=== PATIENT | male | born 1950 | race Caucasian/White ===

== ENCOUNTER 2019-09-06 16:33 | Inpatient (IN) | payer OTHER, MEDICARE ==
[2019-09-06] MEDS ORDERED: Sodium Chloride 0.9% 2.5 ML Syringe FLUSH PRN (16:45)
[2019-09-06] MEDS ORDERED: Aspirin 81 MG Tab.Chew PO ONE (16:45)
[2019-09-06] MEDS ORDERED: Sodium Chloride 0.9% 10 ML Syringe FLUSH PRN (16:45)
--- NOTE | 2019-09-06 16:49 | EDM.PDOC ---
ED HPI GENERAL MEDICAL PROBLEM - General Chief Complaint: Respiratory Problem Stated Complaint: COUGH Time Seen by Provider: 09/06/19 16:34 Source of Information: Reports: Patient History Limitations: Reports: No Limitations - History of Present Illness INITIAL COMMENTS - FREE TEXT/NARRATIVE: HISTORY AND PHYSICAL: History of present illness: Patient is a 69-year-old male who presents to the emergency room with complaints of shortness of breath and cough. He reports that the shortness of breath has been longstanding and ongoing for the past 2 years. Over the past 2 weeks the shortness of breath has slightly increased but he was concerned as he has developed a cough. He reports having right-sided anterior to mid axillary chest wall pain that is worse with coughing. Chest wall is nontender. There is no evidence of a shingles type rash. He did go to [facility] and had COVID-19 swab completed 2 days ago, received his results today which were negative. Patient denies any fever, chills, headache, change in vision, syncope or near syncope. Denies any back pain, sensation of palpitations, tachycardia, or lower extremity swelling. Denies any abdominal pain, nausea, vomiting, diarrhea, constipation or dysuria. Has not noted any blood in urine or stool. Patient has been eating and drinking appropriately. Denies any recent travel or exposure to anyone who is been ill. Patient [place], history of hypertension, elevated cholesterol and OR with stent x4. Review of systems: As per history of present illness and below otherwise all systems reviewed and negative. Past medical history: As per history of present illness and as reviewed below otherwise noncontributory. Surgical history: As per history of present illness and as reviewed below otherwise noncontributory. Social history: See social history for further information Family history: As per history of present illness and as reviewed below otherwise noncontributory. Physical exam: General: Well-developed and well-nourished 69-year-old male. Alert and oriented. Nontoxic-appearing and in no acute distress. HEENT: Atraumatic, normocephalic, pupils equal and reactive bilaterally, negative for conjunctival pallor or scleral icterus, mucous membranes moist, TMs normal bilaterally, throat clear, neck supple, nontender, trachea midline. No drooling or trismus noted. No meningeal signs. No hot potato voice noted. Lungs: Clear to auscultation, breath sounds equal bilaterally, chest nontender. Heart: Irregular rate and rhythm without overt murmur Abdomen: Soft, nondistended, nontender. Negative for masses or hepatosplenomegaly. Negative for costovertebral tenderness. Skin: Intact, warm, dry. No lesions or rashes noted. Extremities: Atraumatic, moves all extremities per self without difficulty or deficits, negative lower extremity edema, negative for cords or calf pain. Neurovascular unremarkable. Neuro: Awake, alert, oriented. Cranial nerves II through XII unremarkable. Cerebellum unremarkable. Motor and sensory unremarkable throughout. Exam nonfocal. Notes: EKG shows atrial fibrillation with a rate of 108. There is no previous EKGs to compare to. Patient denies having any known history of atrial fibrillation. Patient has an elevated WBC, BUN/Creat, and D. Dimer. CTA chest ordered to r/o PE; risks vs benefits weighted. Will rehydrate afterwards. CT of the chest shows a moderate amount of pulmonary embolism in the right upper and lower lung. There is a small clot in the left lower lung. Probable early infarct within the right upper lung. There is a small right-sided pleural effusion with mild bibasilar atelectasis. Small pericardial effusion with cardiomegaly. No evidence of right heart strain is seen at this time. I did consult Dr. Alvarez, hospitalist on-call, he is agreeable to keeping this patient for inpatient management. Heparin bolus and IV drip started here. I did discuss diagnostics with the patient and I called his , [place] N[place] [phone]) and we discussed the need for admission. Both are agreeable to plan of care. Vital signs remained stable. Diagnostics: CBC, CMP, troponin, EKG, chest x-ray, d-dimer, INR, CTA chest Therapeutics: Aspirin, normal saline, heparin bolus and drip Impression: New onset of atrial fibrillation Renal insufficiency PE Plan: Inpatient admission with telemetry Definitive disposition and diagnosis as appropriate pending reevaluation and review of above. - Related Data Allergies Allergy/AdvReac Type Severity Reaction Status Date / Time No Known Allergies Allergy Verified 09/06/19 16:46 Home Meds: Home Meds Allopurinol [Zyloprim] 150 mg PO DAILY 09/06/19 [History] Aspirin 81 mg PO DAILY 09/06/19 [History] Metoprolol Succinate 1 tab PO DAILY 09/06/19 [History] Nitroglycerin 1 tab SL ASDIRECTED 09/06/19 [History] Potassium Chloride 1 tab PO BID 09/06/19 [History] Simvastatin 1 tab PO BEDTIME 09/06/19 [History] Triamterene/Hydrochlorothiazid [Triamterene-HCTZ 37.5-25 MG] 1 tab PO DAILY 09/06/19 [History] amLODIPine [Norvasc] 5 mg PO DAILY 09/06/19 [History] lisinopriL [Lisinopril] 40 mg PO DAILY 09/06/19 [History] traZODone HCl [Trazodone HCl] 1 tab PO BEDTIME 09/06/19 [History] ED ROS GENERAL - Review of Systems Review Of Systems: Comprehensive ROS is negative, except as noted in HPI. ED EXAM, GENERAL - Physical Exam Exam: See Below (See dictation) Course - Vital Signs Last Recorded V/S: Last Vital Signs Temp 96.3 F L 09/06/19 16:44 Pulse 104 H 09/06/19 18:31 Resp 17 09/06/19 18:31 BP 118/79 09/06/19 18:31 Pulse Ox 94 L 09/06/19 18:31 - Orders/Labs/Meds Orders: Active Orders 24 hr Category Date Time Status Admission Status [Patient Status] [ADT] Stat ADT 09/06/19 19:12 Ordered EKG Documentation Completion [RC] STAT Care 09/06/19 16:45 Active CORONAVIRUS COVID-19 DANIEL [MOLEC] Stat Lab 09/06/19 18:30 Received INR,PT,PROTHROMBIN TIME [COAG] Stat Lab 09/06/19 19:00 Ordered Heparin Sod,Pork In 0.45% Nacl [Heparin-1/2Ns 25,000 Med 09/06/19 19:15 Ordered Units/500] 25,000 unit in 500 ml IV TITRATE Heparin Sodium Med 09/06/19 19:14 Once 5,000 units IVPUSH .BOLUS ONE Sodium Chloride 0.9% [Normal Saline] 1,000 ml Med 09/06/19 17:48 Active IV STAT Sodium Chloride 0.9% [Saline Flush] Med 09/06/19 16:45 Active 10 ml FLUSH ASDIRECTED PRN Sodium Chloride 0.9% [Saline Flush] Med 09/06/19 16:45 Active 2.5 ml FLUSH ASDIRECTED PRN Saline Lock Insert [OM.PC] Stat Oth 09/06/19 16:45 Ordered Medication Orders Sodium Chloride (Normal Saline) 1,000 mls @ 200 mls/hr IV STAT ONE Stop: 09/06/19 22:47 Last Admin: 09/06/19 17:50 Dose: 200 mls/hr Documented by: DOREEN Sodium Chloride (Saline Flush) 10 ml FLUSH ASDIRECTED PRN PRN Reason: Keep Vein Open Last Admin: 09/06/19 17:14 Dose: 10 ml Documented by: DOREEN Sodium Chloride (Saline Flush) 2.5 ml FLUSH ASDIRECTED PRN PRN Reason: Keep Vein Open Last Admin: 09/06/19 17:14 Dose: 2.5 ml Documented by: DOREEN Labs: Laboratory Tests 09/06/19 09/06/19 09/06/19 Range/Units 16:55 16:55 16:55 WBC 14.65 H (4.0-11.0) K/uL RBC 5.65 (4.50-5.90) M/uL Hgb 16.7 (13.0-17.0) g/dL Hct 46.4 (38.0-50.0) % MCV 82.1 (80.0-98.0) fL MCH 29.6 (27.0-32.0) pg MCHC 36.0 (31.0-37.0) g/dL RDW Std Deviation 39.0 (28.0-62.0) fl RDW Coeff of Jennifer 13 (11.0-15.0) % Plt Count 266 (150-400) K/uL MPV 10.50 (7.40-12.00) fL Neut % (Auto) 74.2 (48.0-80.0) % Lymph % (Auto) 13.7 L (16.0-40.0) % [place] % (Auto) 11.8 (0.0-15.0) % Eos % (Auto) 0.1 (0.0-7.0) % Baso % (Auto) 0.2 (0.0-1.5) % Neut # (Auto) 10.9 H (1.4-5.7) K/uL Lymph # (Auto) 2.0 (0.6-2.4) K/uL [place] # (Auto) 1.7 H (0.0-0.8) K/uL Eos # (Auto) 0.0 (0.0-0.7) K/uL Baso # (Auto) 0.0 (0.0-0.1) K/uL Nucleated RBC % 0.0 /100WBC Nucleated RBCs # 0 K/uL D-Dimer, Quantitative 2.49 H (0.0-0.50) mg/L FEU Sodium 136 (136-148) mmol/L Potassium 3.2 L (3.5-5.1) mmol/L Chloride 97 L (98-107) mmol/L Carbon Dioxide 26.5 (21.0-32.0) mmol/L BUN 29 H (7.0-18.0) mg/dL Creatinine 2.0 H (0.8-1.3) mg/dL Est Cr Clr Drug Dosing 36.60 mL/min Estimated GFR (MDRD) 33.2 ml/min Glucose 124 H (74-106) mg/dL Calcium 9.3 (8.5-10.1) mg/dL Total Bilirubin 1.8 H (0.2-1.0) mg/dL AST 26 (15-37) IU/L ALT 33 (14-63) IU/L Alkaline Phosphatase 148 H (46-116) U/L Troponin I < 0.050 (0.000-0.056) ng/mL Total Protein 7.6 (6.4-8.2) g/dL Albumin 3.7 (3.4-5.0) g/dL Globulin 3.9 (2.6-4.0) g/dL Albumin/Globulin Ratio 0.9 (0.9-1.6) TSH 3rd Generation (0.36-3.74) uIU/mL 09/06/19 Range/Units 16:55 WBC (4.0-11.0) K/uL RBC (4.50-5.90) M/uL Hgb (13.0-17.0) g/dL Hct (38.0-50.0) % MCV (80.0-98.0) fL MCH (27.0-32.0) pg MCHC (31.0-37.0) g/dL RDW Std Deviation (28.0-62.0) fl RDW Coeff of Jennifer (11.0-15.0) % Plt Count (150-400) K/uL MPV (7.40-12.00) fL Neut % (Auto) (48.0-80.0) % Lymph % (Auto) (16.0-40.0) % [place] % (Auto) (0.0-15.0) % Eos % (Auto) (0.0-7.0) % Baso % (Auto) (0.0-1.5) % Neut # (Auto) (1.4-5.7) K/uL Lymph # (Auto) (0.6-2.4) K/uL [place] # (Auto) (0.0-0.8) K/uL Eos # (Auto) (0.0-0.7) K/uL Baso # (Auto) (0.0-0.1) K/uL Nucleated RBC % /100WBC Nucleated RBCs # K/uL D-Dimer, Quantitative (0.0-0.50) mg/L FEU Sodium (136-148) mmol/L Potassium (3.5-5.1) mmol/L Chloride (98-107) mmol/L Carbon Dioxide (21.0-32.0) mmol/L BUN (7.0-18.0) mg/dL Creatinine (0.8-1.3) mg/dL Est Cr Clr Drug Dosing mL/min Estimated GFR (MDRD) ml/min Glucose (74-106) mg/dL Calcium (8.5-10.1) mg/dL Total Bilirubin (0.2-1.0) mg/dL AST (15-37) IU/L ALT (14-63) IU/L Alkaline Phosphatase (46-116) U/L Troponin I (0.000-0.056) ng/mL Total Protein (6.4-8.2) g/dL Albumin (3.4-5.0) g/dL Globulin (2.6-4.0) g/dL Albumin/Globulin Ratio (0.9-1.6) TSH 3rd Generation 1.64 (0.36-3.74) uIU/mL Meds: Medications Generic Name Dose Route Start Last Admin Trade Name Freq PRN Reason Stop Dose Admin Sodium Chloride 1,000 mls @ 200 mls/hr 09/06/19 17:48 09/06/19 17:50 Normal Saline IV 09/06/19 22:47 200 mls/hr STAT ONE Administration Sodium Chloride 10 ml 09/06/19 16:45 09/06/19 17:14 Saline Flush FLUSH 10 ml ASDIRECTED PRN Administration Keep Vein Open Sodium Chloride 2.5 ml 09/06/19 16:45 09/06/19 17:14 Saline Flush FLUSH 2.5 ml ASDIRECTED PRN Administration Keep Vein Open Discontinued Medications Generic Name Dose Route Start Last Admin Trade Name Freq PRN Reason Stop Dose Admin Aspirin 324 mg 09/06/19 16:45 09/06/19 17:14 Aspirin PO 09/06/19 16:46 324 mg ONETIME ONE Administration Iopamidol 50 ml 09/06/19 18:15 09/06/19 18:16 Isovue Multipack-370 (76%) IVPUSH 09/06/19 18:16 50 ml ONETIME STA Administration Departure - Departure Time of Disposition: 19:20 Disposition: Admitted As Inpatient 65 Clinical Impression: Atrial fibrillation, new onset, Renal insufficiency Pulmonary emboli Qualifiers: Pulmonary embolism type: unspecified Chronicity: acute Acute cor pulmonale presence: unspecified Qualified Code(s): I26.99 - Other pulmonary embolism without acute cor pulmonale - Discharge Information Referrals: [facility] [Primary Care Provider] - Forms: ED Department Discharge Sepsis Event Note (ED) - Evaluation Sepsis Screening Result: No Definite Risk - Focused Exam Vital Signs: Vital Signs Temp Pulse Resp BP Pulse Ox 09/06/19 18:31 104 H 17 118/79 94 L 09/06/19 18:18 107 H 18 117/84 94 L 09/06/19 17:31 121 H 120/83 95 09/06/19 16:44 96.3 F L 78 18 129/85 92 L - My Orders Last 24 Hours: My Active Orders 09/06/19 16:45 EKG Documentation Completion [RC] STAT Sodium Chloride 0.9% [Saline Flush] 10 ml FLUSH ASDIRECTED PRN Sodium Chloride 0.9% [Saline Flush] 2.5 ml FLUSH ASDIRECTED PRN Saline Lock Insert [OM.PC] Stat 09/06/19 17:48 Sodium Chloride 0.9% [Normal Saline] 1,000 ml IV STAT 09/06/19 18:30 CORONAVIRUS COVID-19 DANIEL [MOLEC] Stat 09/06/19 19:00 INR,PT,PROTHROMBIN TIME [COAG] Stat 09/06/19 19:12 Admission Status [Patient Status] [ADT] Stat 09/06/19 19:14 Heparin Sodium 5,000 units IVPUSH .BOLUS ONE 09/06/19 19:15 Heparin Sod,Pork In 0.45% Nacl [Heparin-1/2Ns 25,000 Units/500] 25,000 unit in 500 ml IV TITRATE - Assessment/Plan Last 24 Hours: My Active Orders 09/06/19 16:45 EKG Documentation Completion [RC] STAT Sodium Chloride 0.9% [Saline Flush] 10 ml FLUSH ASDIRECTED PRN Sodium Chloride 0.9% [Saline Flush] 2.5 ml FLUSH ASDIRECTED PRN Saline Lock Insert [OM.PC] Stat 09/06/19 17:48 Sodium Chloride 0.9% [Normal Saline] 1,000 ml IV STAT 09/06/19 18:30 CORONAVIRUS COVID-19 DANIEL [MOLEC] Stat 09/06/19 19:00 INR,PT,PROTHROMBIN TIME [COAG] Stat 09/06/19 19:12 Admission Status [Patient Status] [ADT] Stat 09/06/19 19:14 Heparin Sodium 5,000 units IVPUSH .BOLUS ONE 09/06/19 19:15 Heparin Sod,Pork In 0.45% Nacl [Heparin-1/2Ns 25,000 Units/500] 25,000 unit in 500 ml IV TITRATE
--- NOTE | 2019-09-06 17:35 | CR ---
Chest: Portable view of the chest was obtained. Comparison: Prior chest x-ray of 05/06/09. Heart has a slight left ventricular configuration. Upper mediastinum is normal. Focal parenchymal density is noted within the right upper lung along the chest wall. This could represent pneumonia or mass. Lungs otherwise are clear. Bony structures are unremarkable. Impression: 1. Parenchymal density within right upper lung adjacent to the right chest wall either due to mass or pneumonia. Recommend treatment as pneumonia with follow-up chest x-ray when therapy is complete to make sure this finding resolves. 2. Left ventricular configuration of the heart. Diagnostic code #3 Study was dictated in MDT
[2019-09-06 17:40] LABS: BLOOD UREA NITROGEN,BUN 29 mg/dL (7.0-18.0); CARBON DIOXIDE,CO2 26.5 mmol/L (21.0-32.0); CHLORIDE,CL 97 mmol/L (98-107); GLUCOSE RANDOM 124 mg/dL (74-106); POTASSIUM,K 3.2 mmol/L (3.5-5.1); SODIUM,NA 136 mmol/L (136-148)
[2019-09-06] MEDS ORDERED: Sodium Chloride 0.9% 1,000 ML IV ONE (17:48)
[2019-09-06] MEDS ORDERED: Iopamidol 755 MG/ML 500 ML Multipack Bottle IVPUSH STA (18:15)
--- NOTE | 2019-09-06 18:58 | CT ---
CT chest Technique: Multiple axial sections through the chest were obtained. Intravenous contrast was utilized. Study performed as a pulmonary protocol. Findings: Clot is seen within the segmental and subsegmental branch of the right upper lung. Clot is seen within the segmental and subsegmental branches of the right lower lung. Small amount of clot is noted within the subsegmental branches of the left lower lung. Small right sided pleural effusion is seen. Focal parenchymal density within the right upper lung base is noted most likely due to early pulmonary infarct. Lungs otherwise are clear other than slight bibasilar atelectasis. Visualized upper abdominal structures shows prior cholecystectomy. Small pericardial effusion is noted. Heart is enlarged. No evidence of right heart strain. Aorta shows no aneurysm. No adenopathy is seen within the chest. Bone window settings were reviewed which shows slight degenerative change within the spine without acute osseous finding. Impression: 1. Moderate amount of pulmonary emboli as described above. 2. Probable early infarct within the right upper lung. 3. Small right sided pleural effusion with mild bibasilar atelectasis. 4. Small pericardial effusion with cardiomegaly. No evidence of right heart strain seen at this time. 5. Other findings believed to be nonacute as described above. Diagnostic code #5 Study was dictated in MDT
[2019-09-06] MEDS ORDERED: Heparin Sodium 5,000 Units/ML Vial IVPUSH ONE (19:14)
[2019-09-06] MEDS: Heparin Sod,Pork In 0.45% Nacl 25,000 UNIT/500 ML IV.SOLN IV SCH (19:37)
[2019-09-06] MEDS ORDERED: oxyCODONE 5 MG Tab PO PRN (21:22)
[2019-09-06] MEDS ORDERED: Morphine 2 MG/ML SYRINGE IV PRN (21:30)
--- NOTE | 2019-09-06 22:25 | PCM.HP.2 ---
H&P History of Present Illness - General Date of Service: 09/06/19 Admit Problem/Dx: Admission Diagnosis/Problem Admission Diagnosis/Problem Pulmonary embolism - History of Present Illness Initial Comments - Free Text/Narative: 69 yo male with pmh of CAD, s/p PCI, who presents with two week history of shortness of breath. PAtient reports shortness of breath with walking a few feet. He did report a cough but denies any fevers. The last several days he reported right sided chest pain. In the ED EKG showed atrial fibrillation, HR in the 80s-110s. Troponin negative, D-dimer elevated. CT scan of chest showed PE in multiple lung lobes. - Related Data Allergies/Adverse Reactions: Allergies Allergy/AdvReac Type Severity Reaction Status Date / Time No Known Allergies Allergy Verified 09/06/19 20:25 Home Medications: Home Meds Allopurinol [Zyloprim] 150 mg PO DAILY 09/06/19 [History] Aspirin 81 mg PO DAILY 09/06/19 [History] Metoprolol Succinate 1 tab PO DAILY 09/06/19 [History] Nitroglycerin 1 tab SL ASDIRECTED 09/06/19 [History] Potassium Chloride 10 meq PO BID 09/06/19 [History] Simvastatin 1 tab PO BEDTIME 09/06/19 [History] Triamterene/Hydrochlorothiazid [Triamterene-HCTZ 37.5-25 MG] 1 tab PO DAILY 09/06/19 [History] lisinopriL [Lisinopril] 40 mg PO DAILY 09/06/19 [History] traZODone HCl [Trazodone HCl] 1 tab PO BEDTIME 09/06/19 [History] Past Medical History Cardiovascular History: Reports: CAD, High Cholesterol, Hypertension, HI - Past Surgical History Cardiovascular Surgical History: Reports: Carotid Stents GI Surgical History: Reports: Cholecystectomy Social & Family History - Family History Family Medical History: Noncontributory - Tobacco Use Smoking Status *Q: Never Smoker Second Hand Smoke Exposure: No - Caffeine Use Caffeine Use: Reports: Coffee, Soda - Recreational Drug Use Recreational Drug Use: No H&P Review of Systems - Review of Systems: Review Of Systems: Comprehensive ROS is negative, except as noted in HPI. Exam - Exam Exam: See Below - Vital Signs Vital Signs: Last Vital Signs Temp 35.7 C L 09/06/19 16:44 Pulse 108 H 09/06/19 20:08 Resp 18 09/06/19 20:08 BP 121/87 09/06/19 20:08 Pulse Ox 92 L 09/06/19 20:08 Weight: 80.739 kg - Exam General: Alert, Oriented HEENT: Mucosa Moist & [place] Lungs: Clear to Auscultation, Normal Respiratory Effort Cardiovascular: Regular Rate, Regular Rhythm GI/Abdominal Exam: Normal Bowel Sounds, Soft, Non-Tender Extremities: Non-Tender, No Pedal Edema Skin: Warm, Dry, Intact Neurological: Cranial Nerves Intact. No: Focal Deficit - Patient Data Lab Results Last 24 hrs: Laboratory Results - last 24 hr 09/06/19 09/06/19 09/06/19 Range/Units 16:55 16:55 16:55 WBC 14.65 H (4.0-11.0) K/uL RBC 5.65 (4.50-5.90) M/uL Hgb 16.7 (13.0-17.0) g/dL Hct 46.4 (38.0-50.0) % MCV 82.1 (80.0-98.0) fL MCH 29.6 (27.0-32.0) pg MCHC 36.0 (31.0-37.0) g/dL RDW Std Deviation 39.0 (28.0-62.0) fl RDW Coeff of Jennifer 13 (11.0-15.0) % Plt Count 266 (150-400) K/uL MPV 10.50 (7.40-12.00) fL Neut % (Auto) 74.2 (48.0-80.0) % Lymph % (Auto) 13.7 L (16.0-40.0) % [place] % (Auto) 11.8 (0.0-15.0) % Eos % (Auto) 0.1 (0.0-7.0) % Baso % (Auto) 0.2 (0.0-1.5) % Neut # (Auto) 10.9 H (1.4-5.7) K/uL Lymph # (Auto) 2.0 (0.6-2.4) K/uL [place] # (Auto) 1.7 H (0.0-0.8) K/uL Eos # (Auto) 0.0 (0.0-0.7) K/uL Baso # (Auto) 0.0 (0.0-0.1) K/uL Nucleated RBC % 0.0 /100WBC Nucleated RBCs # 0 K/uL INR D-Dimer, Quantitative 2.49 H (0.0-0.50) mg/L FEU Sodium 136 (136-148) mmol/L Potassium 3.2 L (3.5-5.1) mmol/L Chloride 97 L (98-107) mmol/L Carbon Dioxide 26.5 (21.0-32.0) mmol/L BUN 29 H (7.0-18.0) mg/dL Creatinine 2.0 H (0.8-1.3) mg/dL Est Cr Clr Drug Dosing 36.60 mL/min Estimated GFR (MDRD) 33.2 ml/min Glucose 124 H (74-106) mg/dL Calcium 9.3 (8.5-10.1) mg/dL Total Bilirubin 1.8 H (0.2-1.0) mg/dL AST 26 (15-37) IU/L ALT 33 (14-63) IU/L Alkaline Phosphatase 148 H (46-116) U/L Troponin I < 0.050 (0.000-0.056) ng/mL Total Protein 7.6 (6.4-8.2) g/dL Albumin 3.7 (3.4-5.0) g/dL Globulin 3.9 (2.6-4.0) g/dL Albumin/Globulin Ratio 0.9 (0.9-1.6) TSH 3rd Generation (0.36-3.74) uIU/mL SARS Virus RNA (PCR) (NEGATIVE) 09/06/19 09/06/19 09/06/19 Range/Units 16:55 16:55 18:30 WBC (4.0-11.0) K/uL RBC (4.50-5.90) M/uL Hgb (13.0-17.0) g/dL Hct (38.0-50.0) % MCV (80.0-98.0) fL MCH (27.0-32.0) pg MCHC (31.0-37.0) g/dL RDW Std Deviation (28.0-62.0) fl RDW Coeff of Jennifer (11.0-15.0) % Plt Count (150-400) K/uL MPV (7.40-12.00) fL Neut % (Auto) (48.0-80.0) % Lymph % (Auto) (16.0-40.0) % [place] % (Auto) (0.0-15.0) % Eos % (Auto) (0.0-7.0) % Baso % (Auto) (0.0-1.5) % Neut # (Auto) (1.4-5.7) K/uL Lymph # (Auto) (0.6-2.4) K/uL [place] # (Auto) (0.0-0.8) K/uL Eos # (Auto) (0.0-0.7) K/uL Baso # (Auto) (0.0-0.1) K/uL Nucleated RBC % /100WBC Nucleated RBCs # K/uL INR 1.02 D-Dimer, Quantitative (0.0-0.50) mg/L FEU Sodium (136-148) mmol/L Potassium (3.5-5.1) mmol/L Chloride (98-107) mmol/L Carbon Dioxide (21.0-32.0) mmol/L BUN (7.0-18.0) mg/dL Creatinine (0.8-1.3) mg/dL Est Cr Clr Drug Dosing mL/min Estimated GFR (MDRD) ml/min Glucose (74-106) mg/dL Calcium (8.5-10.1) mg/dL Total Bilirubin (0.2-1.0) mg/dL AST (15-37) IU/L ALT (14-63) IU/L Alkaline Phosphatase (46-116) U/L Troponin I (0.000-0.056) ng/mL Total Protein (6.4-8.2) g/dL Albumin (3.4-5.0) g/dL Globulin (2.6-4.0) g/dL Albumin/Globulin Ratio (0.9-1.6) TSH 3rd Generation 1.64 (0.36-3.74) uIU/mL SARS Virus RNA (PCR) NEGATIVE (NEGATIVE) Result Diagrams: 09/07/19 05:50 09/07/19 05:50 Sepsis Event Note - Evaluation Sepsis Screening Result: No Definite Risk - Focused Exam Vital Signs: Vital Signs Temp Pulse Resp BP Pulse Ox 09/06/19 20:08 108 H 18 121/87 92 L 09/06/19 18:31 104 H 17 118/79 94 L 09/06/19 18:18 107 H 18 117/84 94 L 09/06/19 17:31 121 H 120/83 95 09/06/19 16:44 35.7 C L 78 18 129/85 92 L Date Exam was Performed: 09/07/19 Time Exam was Performed: 21:28 Problem List Initiated/Reviewed/Updated: Yes Orders Last 24hrs: Active Orders 24 hr Category Date Time Status Admission Status [Patient Status] [ADT] Stat ADT 09/06/19 19:12 Active EKG Documentation Completion [RC] STAT Care 09/06/19 16:45 Active Overnight Pulse Oximetry [RC] Click to Edit Care 09/06/19 21:19 Active Oxygen Therapy [RC] PRN Care 09/06/19 22:19 Ordered Telemetry Monitoring [Cardiac Monitoring] [RC] . Care 09/06/19 20:12 Active DIRECTED Up ad [place] [RC] ASDIRECTED Care 09/06/19 22:19 Ordered VTE/DVT Education [RC] PER UNIT ROUTINE Care 09/06/19 22:19 Ordered Vital Signs [RC] Q4H Care 09/06/19 22:19 Ordered Regular Diet [DIET] Diet 09/07/19 Breakfast Active BASIC METABOLIC PANEL,BMP [CHEM] AM Lab 09/07/19 05:11 Ordered CBC WITH AUTO DIFF [HEME] AM Lab 09/07/19 05:11 Ordered TROPONIN I [CHEM] Routine Lab 09/06/19 21:52 Ordered HCTZ/Triamterene [Maxzide 25-37.5 MG] Med 09/07/19 09:00 Active 1 each PO DAILY Heparin Sod,Pork In 0.45% Nacl [Heparin-1/2Ns 25,000 Med 09/06/19 19:15 Active Units/500] 25,000 unit in 500 ml IV TITRATE Metoprolol Succinate [Toprol XL] Med 09/07/19 09:00 Active 100 mg PO DAILY Morphine Sulfate [Morphine] Med 09/06/19 21:30 Active 2 mg IV Q3H PRN Simvastatin [Zocor] Med 09/07/19 21:00 Active 80 mg PO BEDTIME Sodium Chloride 0.9% [Normal Saline] 1,000 ml Med 09/06/19 17:48 Active IV STAT Sodium Chloride 0.9% [Saline Flush] Med 09/06/19 16:45 Active 10 ml FLUSH ASDIRECTED PRN Sodium Chloride 0.9% [Saline Flush] Med 09/06/19 16:45 Active 2.5 ml FLUSH ASDIRECTED PRN oxyCODONE Med 09/06/19 21:22 Active 5 mg PO Q6H PRN traZODone Med 09/07/19 21:00 Active 50 mg PO BEDTIME Pulse Oximetry Continuous Monitoring [OM.PC] Routine Oth 09/06/19 21:19 Ordered Saline Lock Insert [OM.PC] Stat Oth 09/06/19 16:45 Ordered Resuscitation Status Routine Resus Stat 09/06/19 22:19 Ordered Medication Orders Sodium Chloride (Normal Saline) 1,000 mls @ 200 mls/hr IV STAT ONE Stop: 09/06/19 22:47 Last Admin: 09/06/19 17:50 Dose: 200 mls/hr Documented by: [id number] Heparin Sodium/Sodium Chloride (Heparin-1/2ns 25,000 Units/500) 25,000 unit in 500 mls @ 34.291 mls/hr IV TITRATE JULIET; Protocol Last Admin: 09/06/19 19:37 Dose: 18 units/kg/hr, 34.291 mls/hr Documented by: [email or web address] Cosigned by: ALLYN Metoprolol Succinate (Toprol Xl) 100 mg PO DAILY JULIET Morphine Sulfate (Morphine) 2 mg IV Q3H PRN PRN Reason: Pain (severe 7-10) Oxycodone HCl (Oxycodone) 5 mg PO Q6H PRN PRN Reason: Pain Simvastatin (Zocor) 80 mg PO BEDTIME JULIET Sodium Chloride (Saline Flush) 10 ml FLUSH ASDIRECTED PRN PRN Reason: Keep Vein Open Last Admin: 09/06/19 17:14 Dose: 10 ml Documented by: DOREEN Sodium Chloride (Saline Flush) 2.5 ml FLUSH ASDIRECTED PRN PRN Reason: Keep Vein Open Last Admin: 09/06/19 17:14 Dose: 2.5 ml Documented by: [id number] Trazodone HCl (Trazodone) 50 mg PO BEDTIME JULIET Triamterene/HCTZ (Maxzide 25-37.5 Mg) 1 each PO DAILY JULIET Assessment/Plan Comment:: 69 yo male admitted with PE. We will treat with heparin drip. This appears to be unprovoked. CT reported cardiomegaly so will check echocardiogram.
[2019-09-07 06:31] LABS: CARBON DIOXIDE,CO2 27.9 mmol/L (21.0-32.0); POTASSIUM,K 3.3 mmol/L (3.5-5.1)
[2019-09-07] MEDS: Metoprolol Succinate 100 MG Tab.ER PO SCH (08:31)
[2019-09-07] MEDS: Hydrochlorothiazide/Triamterene 25-37.5 Tab PO SCH (08:31)
--- NOTE | 2019-09-07 10:23 | PCM.PN ---
- General Info Date of Service: 09/07/19 Subjective Update: Bedside: not endorsing any new pains; SOB improved. Walking trial performed in AM; no tachycardia, subjective dyspnea or CP appreciated. Functional Status: Reports: Pain Controlled - Review of Systems General: Denies: No Symptoms HEENT: Denies: No Symptoms Pulmonary: Denies: No Symptoms Cardiovascular: Denies: No Symptoms Gastrointestinal: Denies: No Symptoms Musculoskeletal: Denies: No Symptoms Skin: Denies: No Symptoms Neurological: Denies: No Symptoms Psychiatric: Denies: No Symptoms - Patient Data Vitals - Most Recent: Last Vital Signs Temp 96.6 F L 09/07/19 08:00 Pulse 100 09/07/19 08:31 Resp 17 09/07/19 08:00 BP 120/83 09/07/19 08:31 Pulse Ox 92 L 09/07/19 08:00 Weight - Most Recent: 80.739 kg I&O - Last 24 Hours: Intake & Output 09/06/19 09/07/19 09/07/19 22:59 06:59 14:59 Intake Total 740 Output Total 820 Balance -80 Lab Results Last 24 Hours: Laboratory Results - last 24 hr 09/06/19 09/06/19 09/06/19 Range/Units 16:55 16:55 16:55 WBC 14.65 H (4.0-11.0) K/uL RBC 5.65 (4.50-5.90) M/uL Hgb 16.7 (13.0-17.0) g/dL Hct 46.4 (38.0-50.0) % MCV 82.1 (80.0-98.0) fL MCH 29.6 (27.0-32.0) pg MCHC 36.0 (31.0-37.0) g/dL RDW Std Deviation 39.0 (28.0-62.0) fl RDW Coeff of Jennifer 13 (11.0-15.0) % Plt Count 266 (150-400) K/uL MPV 10.50 (7.40-12.00) fL Neut % (Auto) 74.2 (48.0-80.0) % Lymph % (Auto) 13.7 L (16.0-40.0) % [place] % (Auto) 11.8 (0.0-15.0) % Eos % (Auto) 0.1 (0.0-7.0) % Baso % (Auto) 0.2 (0.0-1.5) % Neut # (Auto) 10.9 H (1.4-5.7) K/uL Lymph # (Auto) 2.0 (0.6-2.4) K/uL [place] # (Auto) 1.7 H (0.0-0.8) K/uL Eos # (Auto) 0.0 (0.0-0.7) K/uL Baso # (Auto) 0.0 (0.0-0.1) K/uL Nucleated RBC % 0.0 /100WBC Nucleated RBCs # 0 K/uL INR APTT (18.6-31.3) SEC D-Dimer, Quantitative 2.49 H (0.0-0.50) mg/L FEU Sodium 136 (136-148) mmol/L Potassium 3.2 L (3.5-5.1) mmol/L Chloride 97 L (98-107) mmol/L Carbon Dioxide 26.5 (21.0-32.0) mmol/L BUN 29 H (7.0-18.0) mg/dL Creatinine 2.0 H (0.8-1.3) mg/dL Est Cr Clr Drug Dosing 36.60 mL/min Estimated GFR (MDRD) 33.2 ml/min Glucose 124 H (74-106) mg/dL Calcium 9.3 (8.5-10.1) mg/dL Total Bilirubin 1.8 H (0.2-1.0) mg/dL AST 26 (15-37) IU/L ALT 33 (14-63) IU/L Alkaline Phosphatase 148 H (46-116) U/L Troponin I < 0.050 (0.000-0.056) ng/mL Total Protein 7.6 (6.4-8.2) g/dL Albumin 3.7 (3.4-5.0) g/dL Globulin 3.9 (2.6-4.0) g/dL Albumin/Globulin Ratio 0.9 (0.9-1.6) TSH 3rd Generation (0.36-3.74) uIU/mL SARS Virus RNA (PCR) (NEGATIVE) 09/06/19 09/06/1909/05/20 Range/Units 16:55 16:55 18:30 WBC (4.0-11.0) K/uL RBC (4.50-5.90) M/uL Hgb (13.0-17.0) g/dL Hct (38.0-50.0) % MCV (80.0-98.0) fL MCH (27.0-32.0) pg MCHC (31.0-37.0) g/dL RDW Std Deviation (28.0-62.0) fl RDW Coeff of Jennifer (11.0-15.0) % Plt Count (150-400) K/uL MPV (7.40-12.00) fL Neut % (Auto) (48.0-80.0) % Lymph % (Auto) (16.0-40.0) % [place] % (Auto) (0.0-15.0) % Eos % (Auto) (0.0-7.0) % Baso % (Auto) (0.0-1.5) % Neut # (Auto) (1.4-5.7) K/uL Lymph # (Auto) (0.6-2.4) K/uL [place] # (Auto) (0.0-0.8) K/uL Eos # (Auto) (0.0-0.7) K/uL Baso # (Auto) (0.0-0.1) K/uL Nucleated RBC % /100WBC Nucleated RBCs # K/uL INR 1.02 APTT (18.6-31.3) SEC D-Dimer, Quantitative (0.0-0.50) mg/L FEU Sodium (136-148) mmol/L Potassium (3.5-5.1) mmol/L Chloride (98-107) mmol/L Carbon Dioxide (21.0-32.0) mmol/L BUN (7.0-18.0) mg/dL Creatinine (0.8-1.3) mg/dL Est Cr Clr Drug Dosing mL/min Estimated GFR (MDRD) ml/min Glucose (74-106) mg/dL Calcium (8.5-10.1) mg/dL Total Bilirubin (0.2-1.0) mg/dL AST (15-37) IU/L ALT (14-63) IU/L Alkaline Phosphatase (46-116) U/L Troponin I (0.000-0.056) ng/mL Total Protein (6.4-8.2) g/dL Albumin (3.4-5.0) g/dL Globulin (2.6-4.0) g/dL Albumin/Globulin Ratio (0.9-1.6) TSH 3rd Generation 1.64 (0.36-3.74) uIU/mL SARS Virus RNA (PCR) NEGATIVE (NEGATIVE) 09/06/19 09/06/19 09/07/19 Range/Units 22:08 23:15 05:50 WBC 10.82 (4.0-11.0) K/uL RBC 5.23 (4.50-5.90) M/uL Hgb 15.2 (13.0-17.0) g/dL Hct 43.1 (38.0-50.0) % MCV 82.4 (80.0-98.0) fL MCH 29.1 (27.0-32.0) pg MCHC 35.3 (31.0-37.0) g/dL RDW Std Deviation 39.3 (28.0-62.0) fl RDW Coeff of Jennifer 13 (11.0-15.0) % Plt Count 221 (150-400) K/uL MPV 10.70 (7.40-12.00) fL Neut % (Auto) 72.7 (48.0-80.0) % Lymph % (Auto) 13.6 L (16.0-40.0) % [place] % (Auto) 12.8 (0.0-15.0) % Eos % (Auto) 0.6 (0.0-7.0) % Baso % (Auto) 0.3 (0.0-1.5) % Neut # (Auto) 7.9 H (1.4-5.7) K/uL Lymph # (Auto) 1.5 (0.6-2.4) K/uL [place] # (Auto) 1.4 H (0.0-0.8) K/uL Eos # (Auto) 0.1 (0.0-0.7) K/uL Baso # (Auto) 0.0 (0.0-0.1) K/uL Nucleated RBC % 0.0 /100WBC Nucleated RBCs # 0 K/uL INR APTT 72.4 H (18.6-31.3) SEC D-Dimer, Quantitative (0.0-0.50) mg/L FEU Sodium (136-148) mmol/L Potassium (3.5-5.1) mmol/L Chloride (98-107) mmol/L Carbon Dioxide (21.0-32.0) mmol/L BUN (7.0-18.0) mg/dL Creatinine (0.8-1.3) mg/dL Est Cr Clr Drug Dosing mL/min Estimated GFR (MDRD) ml/min Glucose (74-106) mg/dL Calcium (8.5-10.1) mg/dL Total Bilirubin (0.2-1.0) mg/dL AST (15-37) IU/L ALT (14-63) IU/L Alkaline Phosphatase (46-116) U/L Troponin I < 0.050 (0.000-0.056) ng/mL Total Protein (6.4-8.2) g/dL Albumin (3.4-5.0) g/dL Globulin (2.6-4.0) g/dL Albumin/Globulin Ratio (0.9-1.6) TSH 3rd Generation (0.36-3.74) uIU/mL SARS Virus RNA (PCR) (NEGATIVE) 09/07/19 09/07/19 Range/Units 05:50 05:50 WBC (4.0-11.0) K/uL RBC (4.50-5.90) M/uL Hgb (13.0-17.0) g/dL Hct (38.0-50.0) % MCV (80.0-98.0) fL MCH (27.0-32.0) pg MCHC (31.0-37.0) g/dL RDW Std Deviation (28.0-62.0) fl RDW Coeff of Jennifer (11.0-15.0) % Plt Count (150-400) K/uL MPV (7.40-12.00) fL Neut % (Auto) (48.0-80.0) % Lymph % (Auto) (16.0-40.0) % [place] % (Auto) (0.0-15.0) % Eos % (Auto) (0.0-7.0) % Baso % (Auto) (0.0-1.5) % Neut # (Auto) (1.4-5.7) K/uL Lymph # (Auto) (0.6-2.4) K/uL [place] # (Auto) (0.0-0.8) K/uL Eos # (Auto) (0.0-0.7) K/uL Baso # (Auto) (0.0-0.1) K/uL Nucleated RBC % /100WBC Nucleated RBCs # K/uL INR APTT 60.4 H (18.6-31.3) SEC D-Dimer, Quantitative (0.0-0.50) mg/L FEU Sodium 138 (136-148) mmol/L Potassium 3.3 L (3.5-5.1) mmol/L Chloride 101 (98-107) mmol/L Carbon Dioxide 27.9 (21.0-32.0) mmol/L BUN 29 H (7.0-18.0) mg/dL Creatinine 1.7 H (0.8-1.3) mg/dL Est Cr Clr Drug Dosing 43.06 mL/min Estimated GFR (MDRD) 40.0 ml/min Glucose 105 (74-106) mg/dL Calcium 8.5 (8.5-10.1) mg/dL Total Bilirubin (0.2-1.0) mg/dL AST (15-37) IU/L ALT (14-63) IU/L Alkaline Phosphatase (46-116) U/L Troponin I (0.000-0.056) ng/mL Total Protein (6.4-8.2) g/dL Albumin (3.4-5.0) g/dL Globulin (2.6-4.0) g/dL Albumin/Globulin Ratio (0.9-1.6) TSH 3rd Generation (0.36-3.74) uIU/mL SARS Virus RNA (PCR) (NEGATIVE) Med Orders - Current: Current Medications Heparin Sodium/Sodium Chloride (Heparin-1/2ns 25,000 Units/500) 25,000 unit in 500 mls @ 34.291 mls/hr IV TITRATE JULIET; Protocol Last Titration: 09/07/19 06:00 Dose: 16 units/kg/hr, 30.481 mls/hr Documented by: Metoprolol Succinate (Toprol Xl) 100 mg PO DAILY [facility] Last Admin: 09/07/19 08:31 Dose: 100 mg Documented by: Morphine Sulfate (Morphine) 2 mg IV Q3H PRN PRN Reason: Pain (severe 7-10) Oxycodone HCl (Oxycodone) 5 mg PO Q6H PRN PRN Reason: Pain Potassium Chloride (Klor-Con 10) 10 meq PO BID JULIET Simvastatin (Zocor) 80 mg PO BEDTIME [facility] Sodium Chloride (Saline Flush) 10 ml FLUSH ASDIRECTED PRN PRN Reason: Keep Vein Open Last Admin: 09/06/19 17:14 Dose: 10 ml Documented by: Sodium Chloride (Saline Flush) 2.5 ml FLUSH ASDIRECTED PRN PRN Reason: Keep Vein Open Last Admin: 09/06/19 17:14 Dose: 2.5 ml Documented by: Trazodone HCl (Trazodone) 50 mg PO BEDTIME [facility] Triamterene/HCTZ (Maxzide 25-37.5 Mg) 1 each PO DAILY [facility] Last Admin: 09/07/19 08:31 Dose: 1 each Documented by: Discontinued Medications Aspirin (Aspirin) 324 mg PO ONETIME ONE Stop: 09/06/19 16:46 Last Admin: 09/06/19 17:14 Dose: 324 mg Documented by: Heparin Sodium (Porcine) (Heparin Sodium) 5,000 units IVPUSH .BOLUS ONE; Protocol Stop: 09/06/19 19:15 Last Admin: 09/06/19 19:36 Dose: 5,000 units Documented by: Sodium Chloride (Normal Saline) 1,000 mls @ 200 mls/hr IV STAT ONE Stop: 09/06/19 22:47 Last Admin: 09/06/19 17:50 Dose: 200 mls/hr Documented by: Iopamidol (Isovue Multipack-370 (76%)) 50 ml IVPUSH ONETIME STA Stop: 09/06/19 18:16 Last Admin: 09/06/19 18:16 Dose: 50 ml Documented by: - Exam Quality Assessment: No: Supplemental Oxygen General: Alert, Oriented, Cooperative, No Acute Distress HEENT: EOMI Neck: Supple Lungs: Clear to Auscultation, Normal Respiratory Effort Cardiovascular: Regular Rate GI/Abdominal Exam: Soft, Non-Tender Back Exam: Normal Inspection Extremities: Normal Inspection Skin: Warm, Dry Neurological: No New Focal Deficit Psy/Mental Status: Alert, Normal Affect, Normal Mood Sepsis Event Note - Evaluation Sepsis Screening Result: No Definite Risk - Focused Exam Vital Signs: Vital Signs Temp Pulse Pulse Resp BP BP Pulse Ox 09/07/19 08:31 100 120/83 09/07/19 08:00 96.6 F L 92 17 120/83 92 L 09/07/19 04:00 98.2 F 83 18 130/71 92 L 09/07/19 00:17 97.0 F 91 17 116/74 92 L 09/06/19 22:19 Pulse Ox 09/07/19 08:31 09/07/19 08:00 09/07/19 04:00 09/07/19 00:17 09/06/19 22:19 95 Date Exam was Performed: 09/07/19 Time Exam was Performed: 10:17 - Problem List Review Problem List Initiated/Reviewed/Updated: Yes - My Orders Last 24 Hours: My Active Orders 09/07/19 10:15 Potassium Chloride [Klor-Con 10] 10 meq PO BID - Plan Plan:: 69 yo male admitted with PE. We will treat with heparin drip. This appears to be unprovoked. CT reported cardiomegaly so will check echocardiogram. Assessment: 1. Multiple unprovoked Pulmonary Emboli 2. new onset Atrial fibrillation 3. HTN 4. Elevated Creatinine Plan: Continue Heparin Drip . Walking trial this AM suggests no desaturations w. ambulation. Mild hypokalemia: restart home dosing of PO Potassium; recheck when applicable. New onset afib: continue on telemetry; rate controlled on current regimen Elevated creatinine: unsure if acute vs chronic: will obtain outside records, [facility], to establish this. Will consider various options of chronic PO anticoagulation in light of Afib, new onset unprovoked PE. Continue to monitor.
[2019-09-07] MEDS: Potassium Chloride 10 MEQ Tab.ER PO SCH ×2 (10:51→22:07)
[2019-09-07] MEDS: Heparin Sod,Pork In 0.45% Nacl 25,000 UNIT/500 ML IV.SOLN IV SCH (12:16)
[2019-09-07] MEDS: Benzonatate 100 MG Cap PO PRN (14:10)
[2019-09-07] MEDS ORDERED: Simvastatin 40 MG Tab PO SCH (21:00)
[2019-09-07] MEDS ORDERED: traZODone 50 MG Tab PO SCH (21:00)
[2019-09-08] MEDS: Heparin Sod,Pork In 0.45% Nacl 25,000 UNIT/500 ML IV.SOLN IV SCH (03:10)
[2019-09-08 06:36] LABS: CARBON DIOXIDE,CO2 29.7 mmol/L (21.0-32.0)
[2019-09-08] MEDS ORDERED: Potassium Chloride 20 MEQ Tab.ER PO ONE (07:35)
[2019-09-08] MEDS ORDERED: Apixaban 5 MG Tab PO SCH (09:00)
[2019-09-08] MEDS: Potassium Chloride 10 MEQ Tab.ER PO SCH (09:52)
[2019-09-08] MEDS: Metoprolol Succinate 100 MG Tab.ER PO SCH (09:53)
[2019-09-08] MEDS: Hydrochlorothiazide/Triamterene 25-37.5 Tab PO SCH (09:53)
[2019-09-08] MEDS: Benzonatate 100 MG Cap PO PRN (09:54)
--- NOTE | 2019-09-08 10:07 | PCM.DCSUM1 ---
<Dewayne Almanzar - Last Filed: 09/08/19 11:40> Discharge Summary - Hospital Course Free Text/Narrative:: 69 yo male with pmh of CAD, s/p PCI, who presents with two week history of shortness of breath. PAtient reports shortness of breath with walking a few feet. He did report a cough but denies any fevers. The last several days he reported right sided chest pain. ED course: EKG showed atrial fibrillation, HR in the 80s-110s. Troponin negative, D-dimer elevated. CT scan of chest showed PE in multiple lung lobes. Hospital course: admitted with PE. Treated with heparin drip. Appeareed to be unprovoked. CT reported cardiomegaly; echocardiogram ordered; results pending. Continuous o2 monitoring started; pt otherwise did not complain of any further CP and or dyspnea. Mentiosn dry non-productive cough but was otherwise stable. Telemetry showed Atrial fibrillation; rate controlled. Discussed anticoagulation options and Eliquis was initated. Rx for eliquis provided to patient. Hypokalemia also noted on labs: additional 40 mew K given to ramone addison. home dose of potassium (10 meq BID) restarted. pt. otherwise asymptomatic. Elevated creatinine:1.7 ([facility] records showed creatinein of 1.3 in March of 2019); imrpoving to 1.5 on day of discharge. Lisinopril held throughout stay; rx for repeat BMP provided for jose ot recheck both kidney funtion and potassium levels. ADvised to hold Lisinopril until PCP follow up to consider restarting medications; BP on day of discharge: 125/78. pt requested discharge. pt in stable condition. Discharged home. - Discharge Data Discharge Date: 09/08/19 Discharge Disposition: Home, Self-Care 01 Condition: Stable - Referral to Home Health Primary Care Physician: [facility] - Patient Instructions Diet: Heart Healthy Diet Notify Provider of: Fever Other/Special Instructions: Please hold your BP medication, Lisinopril; until you are seen by your PCP; he/she will decide to restart this medication. You will need your blood work rechecked in 1-week to see if your kidneys are returning to normal . A prescription will be written - Discharge Plan Home Medications: Home Meds Allopurinol [Zyloprim] 150 mg PO DAILY 09/06/19 [History] Aspirin 81 mg PO DAILY 09/06/19 [History] Metoprolol Succinate 1 tab PO DAILY 09/06/19 [History] Nitroglycerin 1 tab SL ASDIRECTED 09/06/19 [History] Potassium Chloride 10 meq PO BID 09/06/19 [History] Simvastatin 1 tab PO BEDTIME 09/06/19 [History] Triamterene/Hydrochlorothiazid [Triamterene-HCTZ 37.5-25 MG] 1 tab PO DAILY 09/06/19 [History] traZODone HCl [Trazodone HCl] 1 tab PO BEDTIME 09/06/19 [History] Apixaban [Eliquis] 10 mg PO BID tablet 09/08/19 [Rx] Patient Handouts: Pulmonary Embolism, Apixaban oral tablets Referrals: [facility] [Primary Care Provider] - 09/21/19 8:30 am (Arrive 30 minutes early with a photo ID, insurance card, and a mask if you have one. You will need to get blood work done at this appointment. Also, talk to your provider about going to see a land clearer, due to the recent scan that showed cardiomyopathy.) - Discharge Summary/Plan Comment DC Time >30 min.: No - Patient Data Vitals - Most Recent: Last Vital Signs Temp 97.4 F 09/08/19 08:00 Pulse 104 H 09/08/19 09:53 Resp 17 09/08/19 08:00 BP 132/97 H 09/08/19 09:53 Pulse Ox 92 L 09/08/19 08:00 Weight - Most Recent: 80.739 kg I&O - Last 24 hours: Intake & Output 09/07/19 09/08/19 09/08/19 22:59 06:59 14:59 Intake Total 860 960 Output Total 720 650 Balance 140 310 Lab Results - Last 24 hrs: Laboratory Results - last 24 hr 09/07/19 09/07/19 09/07/19 Range/Units 05:50 11:35 17:12 WBC (4.0-11.0) K/uL RBC (4.50-5.90) M/uL Hgb (13.0-17.0) g/dL Hct (38.0-50.0) % MCV (80.0-98.0) fL MCH (27.0-32.0) pg MCHC (31.0-37.0) g/dL RDW Std Deviation (28.0-62.0) fl RDW Coeff of Jennifer (11.0-15.0) % Plt Count (150-400) K/uL MPV (7.40-12.00) fL Neut % (Auto) (48.0-80.0) % Lymph % (Auto) (16.0-40.0) % Gallia % (Auto) (0.0-15.0) % Eos % (Auto) (0.0-7.0) % Baso % (Auto) (0.0-1.5) % Neut # (Auto) (1.4-5.7) K/uL Lymph # (Auto) (0.6-2.4) K/uL Gallia # (Auto) (0.0-0.8) K/uL Eos # (Auto) (0.0-0.7) K/uL Baso # (Auto) (0.0-0.1) K/uL Nucleated RBC % /100WBC Nucleated RBCs # K/uL APTT 53.6 H 52.3 H (18.6-31.3) SEC Sodium (136-148) mmol/L Potassium (3.5-5.1) mmol/L Chloride (98-107) mmol/L Carbon Dioxide (21.0-32.0) mmol/L BUN (7.0-18.0) mg/dL Creatinine (0.8-1.3) mg/dL Est Cr Clr Drug Dosing mL/min Estimated GFR (MDRD) ml/min Glucose (74-106) mg/dL Calcium (8.5-10.1) mg/dL Magnesium 2.2 (1.8-2.4) mg/dL Total Bilirubin (0.2-1.0) mg/dL AST (15-37) IU/L ALT (14-63) IU/L Alkaline Phosphatase (46-116) U/L Total Protein (6.4-8.2) g/dL Albumin (3.4-5.0) g/dL Globulin (2.6-4.0) g/dL Albumin/Globulin Ratio (0.9-1.6) 09/07/19 09/08/1909/07/20 Range/Units 23:05 05:53 05:53 WBC 7.94 (4.0-11.0) K/uL RBC 5.10 (4.50-5.90) M/uL Hgb 14.7 (13.0-17.0) g/dL Hct 41.8 (38.0-50.0) % MCV 82.0 (80.0-98.0) fL MCH 28.8 (27.0-32.0) pg MCHC 35.2 (31.0-37.0) g/dL RDW Std Deviation 38.7 (28.0-62.0) fl RDW Coeff of Jennifer 13 (11.0-15.0) % Plt Count 226 (150-400) K/uL MPV 10.80 (7.40-12.00) fL Neut % (Auto) 66.2 (48.0-80.0) % Lymph % (Auto) 19.3 (16.0-40.0) % Gallia % (Auto) 12.6 (0.0-15.0) % Eos % (Auto) 1.5 (0.0-7.0) % Baso % (Auto) 0.4 (0.0-1.5) % Neut # (Auto) 5.3 (1.4-5.7) K/uL Lymph # (Auto) 1.5 (0.6-2.4) K/uL Gallia # (Auto) 1.0 H (0.0-0.8) K/uL Eos # (Auto) 0.1 (0.0-0.7) K/uL Baso # (Auto) 0.0 (0.0-0.1) K/uL Nucleated RBC % 0.0 /100WBC Nucleated RBCs # 0 K/uL APTT 56.4 H (18.6-31.3) SEC Sodium 137 (136-148) mmol/L Potassium 3.0 L (3.5-5.1) mmol/L Chloride 99 (98-107) mmol/L Carbon Dioxide 29.7 (21.0-32.0) mmol/L BUN 24 H (7.0-18.0) mg/dL Creatinine 1.5 H (0.8-1.3) mg/dL Est Cr Clr Drug Dosing 48.81 mL/min Estimated GFR (MDRD) 46.3 ml/min Glucose 96 (74-106) mg/dL Calcium 8.3 L (8.5-10.1) mg/dL Magnesium (1.8-2.4) mg/dL Total Bilirubin 0.8 (0.2-1.0) mg/dL AST 30 (15-37) IU/L ALT 37 (14-63) IU/L Alkaline Phosphatase 129 H (46-116) U/L Total Protein 6.6 (6.4-8.2) g/dL Albumin 3.2 L (3.4-5.0) g/dL Globulin 3.4 (2.6-4.0) g/dL Albumin/Globulin Ratio 0.9 (0.9-1.6) 09/08/19 Range/Units 05:53 WBC (4.0-11.0) K/uL RBC (4.50-5.90) M/uL Hgb (13.0-17.0) g/dL Hct (38.0-50.0) % MCV (80.0-98.0) fL MCH (27.0-32.0) pg MCHC (31.0-37.0) g/dL RDW Std Deviation (28.0-62.0) fl RDW Coeff of Jennifer (11.0-15.0) % Plt Count (150-400) K/uL MPV (7.40-12.00) fL Neut % (Auto) (48.0-80.0) % Lymph % (Auto) (16.0-40.0) % Gallia % (Auto) (0.0-15.0) % Eos % (Auto) (0.0-7.0) % Baso % (Auto) (0.0-1.5) % Neut # (Auto) (1.4-5.7) K/uL Lymph # (Auto) (0.6-2.4) K/uL Gallia # (Auto) (0.0-0.8) K/uL Eos # (Auto) (0.0-0.7) K/uL Baso # (Auto) (0.0-0.1) K/uL Nucleated RBC % /100WBC Nucleated RBCs # K/uL APTT 57.6 H (18.6-31.3) SEC Sodium (136-148) mmol/L Potassium (3.5-5.1) mmol/L Chloride (98-107) mmol/L Carbon Dioxide (21.0-32.0) mmol/L BUN (7.0-18.0) mg/dL Creatinine (0.8-1.3) mg/dL Est Cr Clr Drug Dosing mL/min Estimated GFR (MDRD) ml/min Glucose (74-106) mg/dL Calcium (8.5-10.1) mg/dL Magnesium (1.8-2.4) mg/dL Total Bilirubin (0.2-1.0) mg/dL AST (15-37) IU/L ALT (14-63) IU/L Alkaline Phosphatase (46-116) U/L Total Protein (6.4-8.2) g/dL Albumin (3.4-5.0) g/dL Globulin (2.6-4.0) g/dL Albumin/Globulin Ratio (0.9-1.6) Med Orders - Current: Current Medications Apixaban (Eliquis) 10 mg PO BID FOR[facility]LY [facility], [facility] Last Admin: 09/08/19 09:52 Dose: 10 mg Documented by: Benzonatate (Tessalon Perles) 200 mg PO BID PRN PRN Reason: Cough Last Admin: 09/08/19 09:54 Dose: 200 mg Documented by: Metoprolol Succinate (Toprol Xl) 100 mg PO DAILY FORMERLY [facility], [facility]1983 Last Admin: 09/08/19 09:53 Dose: 100 mg Documented by: Morphine Sulfate (Morphine) 2 mg IV Q3H PRN PRN Reason: Pain (severe 7-10) Oxycodone HCl (Oxycodone) 5 mg PO Q6H PRN PRN Reason: Pain Potassium Chloride (Klor-Con 10) 10 meq PO BID FOR[facility]LY [facility], [facility] Last Admin: 09/08/19 09:52 Dose: 10 meq Documented by: Simvastatin (Zocor) 80 mg PO BEDTIME FOR[facility]LY [facility], [facility] Last Admin: 09/07/19 22:07 Dose: 80 mg Documented by: Sodium Chloride (Saline Flush) 10 ml FLUSH ASDIRECTED PRN PRN Reason: Keep Vein Open Last Admin: 09/06/19 17:14 Dose: 10 ml Documented by: Sodium Chloride (Saline Flush) 2.5 ml FLUSH ASDIRECTED PRN PRN Reason: Keep Vein Open Last Admin: 09/06/19 17:14 Dose: 2.5 ml Documented by: Trazodone HCl (Trazodone) 50 mg PO BEDTIME JULIET Last Admin: 09/07/19 22:07 Dose: 50 mg Documented by: Triamterene/HCTZ (Maxzide 25-37.5 Mg) 1 each PO DAILY JULIET Last Admin: 09/08/19 09:53 Dose: 1 each Documented by: Discontinued Medications Aspirin (Aspirin) 324 mg PO ONETIME ONE Stop: 09/06/19 16:46 Last Admin: 09/06/19 17:14 Dose: 324 mg Documented by: Heparin Sodium (Porcine) (Heparin Sodium) 5,000 units IVPUSH .BOLUS ONE; Protocol Stop: 09/06/19 19:15 Last Admin: 09/06/19 19:36 Dose: 5,000 units Documented by: Sodium Chloride (Normal Saline) 1,000 mls @ 200 mls/hr IV STAT ONE Stop: 09/06/19 22:47 Last Admin: 09/06/19 17:50 Dose: 200 mls/hr Documented by: Heparin Sodium/Sodium Chloride (Heparin-1/2ns 25,000 Units/500) 25,000 unit in 500 mls @ 34.291 mls/hr IV TITRATE JULIET; Protocol Last Titration: 09/08/19 07:22 Dose: 16 units/kg/hr, 30.481 mls/hr Documented by: Iopamidol (Isovue Multipack-370 (76%)) 50 ml IVPUSH ONETIME STA Stop: 09/06/19 18:16 Last Admin: 09/06/19 18:16 Dose: 50 ml Documented by: Potassium Chloride (Klor-Con M20) 40 meq PO ONETIME ONE Stop: 09/08/19 07:36 Last Admin: 09/08/19 07:46 Dose: 40 meq Documented by: <Mark Alvarez - Last Filed: 09/08/19 12:16> Discharge Summary - Referral to Home Health Primary Care Physician: [facility] - Patient Data Vitals - Most Recent: Last Vital Signs Temp 36.3 C 09/08/19 08:00 Pulse 104 H 09/08/19 09:53 Resp 17 09/08/19 08:00 BP 132/97 H 09/08/19 09:53 Pulse Ox 92 L 09/08/19 08:00 I&O - Last 24 hours: Intake & Output 09/07/19 09/08/19 09/08/19 22:59 06:59 14:59 Intake Total 860 960 Output Total 720 650 Balance 140 310 Lab Results - Last 24 hrs: Laboratory Results - last 24 hr 09/07/19 09/07/19 09/08/19 Range/Units 17:12 23:05 05:53 WBC 7.94 (4.0-11.0) K/uL RBC 5.10 (4.50-5.90) M/uL Hgb 14.7 (13.0-17.0) g/dL Hct 41.8 (38.0-50.0) % MCV 82.0 (80.0-98.0) fL MCH 28.8 (27.0-32.0) pg MCHC 35.2 (31.0-37.0) g/dL RDW Std Deviation 38.7 (28.0-62.0) fl RDW Coeff of Jennifer 13 (11.0-15.0) % Plt Count 226 (150-400) K/uL MPV 10.80 (7.40-12.00) fL Neut % (Auto) 66.2 (48.0-80.0) % Lymph % (Auto) 19.3 (16.0-40.0) % Gallia % (Auto) 12.6 (0.0-15.0) % Eos % (Auto) 1.5 (0.0-7.0) % Baso % (Auto) 0.4 (0.0-1.5) % Neut # (Auto) 5.3 (1.4-5.7) K/uL Lymph # (Auto) 1.5 (0.6-2.4) K/uL Gallia # (Auto) 1.0 H (0.0-0.8) K/uL Eos # (Auto) 0.1 (0.0-0.7) K/uL Baso # (Auto) 0.0 (0.0-0.1) K/uL Nucleated RBC % 0.0 /100WBC Nucleated RBCs # 0 K/uL APTT 52.3 H 56.4 H (18.6-31.3) SEC Sodium (136-148) mmol/L Potassium (3.5-5.1) mmol/L Chloride (98-107) mmol/L Carbon Dioxide (21.0-32.0) mmol/L BUN (7.0-18.0) mg/dL Creatinine (0.8-1.3) mg/dL Est Cr Clr Drug Dosing mL/min Estimated GFR (MDRD) ml/min Glucose (74-106) mg/dL Calcium (8.5-10.1) mg/dL Total Bilirubin (0.2-1.0) mg/dL AST (15-37) IU/L ALT (14-63) IU/L Alkaline Phosphatase (46-116) U/L Total Protein (6.4-8.2) g/dL Albumin (3.4-5.0) g/dL Globulin (2.6-4.0) g/dL Albumin/Globulin Ratio (0.9-1.6) 09/08/19 09/08/19 Range/Units 05:53 05:53 WBC (4.0-11.0) K/uL RBC (4.50-5.90) M/uL Hgb (13.0-17.0) g/dL Hct (38.0-50.0) % MCV (80.0-98.0) fL MCH (27.0-32.0) pg MCHC (31.0-37.0) g/dL RDW Std Deviation (28.0-62.0) fl RDW Coeff of Jennifer (11.0-15.0) % Plt Count (150-400) K/uL MPV (7.40-12.00) fL Neut % (Auto) (48.0-80.0) % Lymph % (Auto) (16.0-40.0) % Gallia % (Auto) (0.0-15.0) % Eos % (Auto) (0.0-7.0) % Baso % (Auto) (0.0-1.5) % Neut # (Auto) (1.4-5.7) K/uL Lymph # (Auto) (0.6-2.4) K/uL Gallia # (Auto) (0.0-0.8) K/uL Eos # (Auto) (0.0-0.7) K/uL Baso # (Auto) (0.0-0.1) K/uL Nucleated RBC % /100WBC Nucleated RBCs # K/uL APTT 57.6 H (18.6-31.3) SEC Sodium 137 (136-148) mmol/L Potassium 3.0 L (3.5-5.1) mmol/L Chloride 99 (98-107) mmol/L Carbon Dioxide 29.7 (21.0-32.0) mmol/L BUN 24 H (7.0-18.0) mg/dL Creatinine 1.5 H (0.8-1.3) mg/dL Est Cr Clr Drug Dosing 48.81 mL/min Estimated GFR (MDRD) 46.3 ml/min Glucose 96 (74-106) mg/dL Calcium 8.3 L (8.5-10.1) mg/dL Total Bilirubin 0.8 (0.2-1.0) mg/dL AST 30 (15-37) IU/L ALT 37 (14-63) IU/L Alkaline Phosphatase 129 H (46-116) U/L Total Protein 6.6 (6.4-8.2) g/dL Albumin 3.2 L (3.4-5.0) g/dL Globulin 3.4 (2.6-4.0) g/dL Albumin/Globulin Ratio 0.9 (0.9-1.6) Med Orders - Current: Current Medications Apixaban (Eliquis) 10 mg PO BID FOR[facility], [facility]–1983 Last Admin: 09/08/19 09:52 Dose: 10 mg Documented by: Benzonatate (Tessalon Perles) 200 mg PO BID PRN PRN Reason: Cough Last Admin: 09/08/19 09:54 Dose: 200 mg Documented by: Metoprolol Succinate (Toprol Xl) 100 mg PO DAILY [facility], [facility]1983 Last Admin: 09/08/19 09:53 Dose: 100 mg Documented by: Morphine Sulfate (Morphine) 2 mg IV Q3H PRN PRN Reason: Pain (severe 7-10) Oxycodone HCl (Oxycodone) 5 mg PO Q6H PRN PRN Reason: Pain Potassium Chloride (Klor-Con 10) 10 meq PO BID JULIET Last Admin: 09/08/19 09:52 Dose: 10 meq Documented by: Simvastatin (Zocor) 80 mg PO BEDTIME JULIET Last Admin: 09/07/19 22:07 Dose: 80 mg Documented by: Sodium Chloride (Saline Flush) 10 ml FLUSH ASDIRECTED PRN PRN Reason: Keep Vein Open Last Admin: 09/06/19 17:14 Dose: 10 ml Documented by: Sodium Chloride (Saline Flush) 2.5 ml FLUSH ASDIRECTED PRN PRN Reason: Keep Vein Open Last Admin: 09/06/19 17:14 Dose: 2.5 ml Documented by: Trazodone HCl (Trazodone) 50 mg PO BEDTIME JULIET Last Admin: 09/07/19 22:07 Dose: 50 mg Documented by: Triamterene/HCTZ (Maxzide 25-37.5 Mg) 1 each PO DAILY JULIET Last Admin: 09/08/19 09:53 Dose: 1 each Documented by: Discontinued Medications Aspirin (Aspirin) 324 mg PO ONETIME ONE Stop: 09/06/19 16:46 Last Admin: 09/06/19 17:14 Dose: 324 mg Documented by: Heparin Sodium (Porcine) (Heparin Sodium) 5,000 units IVPUSH .BOLUS ONE; Protocol Stop: 09/06/19 19:15 Last Admin: 09/06/19 19:36 Dose: 5,000 units Documented by: Sodium Chloride (Normal Saline) 1,000 mls @ 200 mls/hr IV STAT ONE Stop: 09/06/19 22:47 Last Admin: 09/06/19 17:50 Dose: 200 mls/hr Documented by: Heparin Sodium/Sodium Chloride (Heparin-1/2ns 25,000 Units/500) 25,000 unit in 500 mls @ 34.291 mls/hr IV TITRATE JULIET; Protocol Last Titration: 09/08/19 07:22 Dose: 16 units/kg/hr, 30.481 mls/hr Documented by: Iopamidol (Isovue Multipack-370 (76%)) 50 ml IVPUSH ONETIME STA Stop: 09/06/19 18:16 Last Admin: 09/06/19 18:16 Dose: 50 ml Documented by: Potassium Chloride (Klor-Con M20) 40 meq PO ONETIME ONE Stop: 09/08/19 07:36 Last Admin: 09/08/19 07:46 Dose: 40 meq Documented by: - Free Text/Narrative Note: I have seen and evaluated the patient with the resident. I have discussed findings and treatment plan with resident. I agree with the assessment and plan as outlined in the following note.
--- NOTE | 2019-09-12 14:54 | ECHO ---
EXAM DATE: 09/06/19 PATIENT'S AGE: 69 The ECHO report has been scanned into [facility] and can be seen in this patient's EMR (Electronic Medical Record) under the REPORTS section. The report has also been scanned into PACS. [facility]
== END 2019-09-08 12:30 | disposition home or self-care (01) | DRG 176 ==
LOC: MW.ED 16:33 → MW.MS 19:12
PROVIDERS: ADMIT Internal Medicine; ATTEND Internal Medicine
DX: I26.99 Other pulmonary embolism without acute cor pulmonale (principal); E87.6 Hypokalemia; N28.9 Disorder of kidney and ureter, unspecified; I25.10 Atherosclerotic heart disease of native coronary artery without angina pectoris; I48.91 Unspecified atrial fibrillation; E78.00 Pure hypercholesterolemia, unspecified; Z95.5 Presence of coronary angioplasty implant and graft; I10 Essential (primary) hypertension; Z20.828 Contact with and (suspected) exposure to other viral communicable diseases; Z79.82 Long term (current) use of aspirin; Z79.899 Other long term (current) drug therapy; I25.2 Old myocardial infarction; Z90.49 Acquired absence of other specified parts of digestive tract
CPT/HCPCS: 36415; 71045; 71045-26; 71275; 71275-26; 80048; 80053; 83735; 84443; 84484; 85025; 85379; 85610; 85730; 93005; 93306; 99283; 99285-25; A9270-GY; J1644; J7030; Q9967; U0002

== ENCOUNTER 2024-09-24 12:50 | Emergency (ER) | payer OTHER, MEDICARE ==
[2024-09-24 13:14] LABS: BASOPHILS ABSOLUTE AUTO 0.04 K/uL (0.00-0.20); BASOPHILS PERCENT AUTO 0.6 % (0.0-1.0); EOSINOPHILS ABSOLUTE AUTO 0.06 K/uL (0.00-0.45); EOSINOPHILS PERCENT AUTO 0.9 % (0.0-6.0); IMMATURE GRAN ABSOLUTE AUTO 0.03 K/uL (0.00-0.05); IMMATURE GRAN PERCENT AUTO 0.5 % (0.0-0.4); LYMPHOCYTES ABSOLUTE AUTO 1.52 K/uL (1.00-4.80); LYMPHOCYTES PERCENT AUTO 22.9 % (24.0-44.0); MEAN PLATELET VOLUME 10.6 fL (9.4-12.4); MONOCYTES ABSOLUTE AUTO 0.66 K/uL (0.00-0.80); MONOCYTES PERCENT AUTO 10.0 % (0.0-8.0); NEUTROPHILS ABSOLUTE AUTO 4.32 K/uL (1.80-7.70); NEUTROPHILS PERCENT AUTO 65.1 % (41.0-71.0); NRBC ABSOLUTE 0.00 K/uL (0.00-0.02); NRBC PERCENT 0.0 /100WBC (0.0-0.2); PLATELET COUNT,PLT 160 K/uL (150-400); RED BLOOD CELL COUNT 5.87 M/uL (4.52-5.90); WHITE BLOOD CELL COUNT,WBC 6.63 K/uL (3.9-11.3)
[2024-09-24 13:24] LABS: INR 1.05 (0.86-1.11)
[2024-09-24 13:48] LABS: A/G RATIO 1.1 (0.9-1.6); ALANINE AMINOTRANSFERASE,ALT 38.0 IU/L (14-63); ASPARTATE AMNIOTRANSFERASE,AST 34.0 IU/L (15-37); BILIRUBIN TOTAL 1.1 mg/dL (0.2-1.0); BLOOD UREA NITROGEN,BUN 13.0 mg/dL (7.0-18.0); CARBON DIOXIDE,CO2 27.3 mmol/L (21.0-32.0); CHLORIDE,CL 102.0 mmol/L (98-107); CREATININE 1.3 mg/dL (0.8-1.3); EST CRCL DRUG DOSING (CG) 53.89 mL/min; GLUCOSE RANDOM 183.0 mg/dL (74-106); POTASSIUM,K 3.0 mmol/L (3.5-5.1); PROTEIN TOTAL,TP 7.4 g/dL (6.4-8.2); SODIUM,NA 141.0 mmol/L (136-148)
[2024-09-24 13:50] LABS: ESTIMATED GFR 57.0 mL/min (>60)
[2024-09-24 14:10] LABS: PRO B-TYPE NATRIUR PEPT,BNPPRO 779.0 pg/mL (0-450)
[2024-09-24] MEDS: Potassium Chloride 20 MEQ Tab.ER PO ONE (14:44)
[2024-09-24] MEDS: Heparin Sodium 5,000 Units/ML Vial IVPUSH ONE (14:45)
[2024-09-24] MEDS: Heparin Sodium/0.45% NaCl 25,000 UNITS/250 ML BAG IV SCH (14:46)
== END 2024-09-24 15:34 ==
LOC: MW.ED 12:50
DX: I21.4 Non-ST elevation (NSTEMI) myocardial infarction (principal); R74.8 Abnormal levels of other serum enzymes; I25.10 Atherosclerotic heart disease of native coronary artery without angina pectoris; I25.2 Old myocardial infarction; I10 Essential (primary) hypertension; E78.00 Pure hypercholesterolemia, unspecified; Z90.49 Acquired absence of other specified parts of digestive tract; Z79.01 Long term (current) use of anticoagulants; Z79.82 Long term (current) use of aspirin; Z79.899 Other long term (current) drug therapy; Z75.3 Unavailability and inaccessibility of health-care facilities
CPT/HCPCS: 36415; 71045; 80053; 83735; 83880; 84484; 85025; 85379; 85610; 85730; 93005; 96365; 99285; A9270; J1644